=== PATIENT | female | born 1970 | race Asian ===

== ENCOUNTER 2020-03-01 19:10 | Inpatient (IN) | payer MEDICAID ==
[~2020-03-01] VITALS: Ht 160 cm; Wt 47.2 kg
[2020-03-01] MEDS ORDERED: SODIUM CHLORIDE 0.9% 1,000 ML IVB ONE (20:09)
[2020-03-01] MEDS ORDERED: PROMETHAZINE HCL 25 MG/ML 1ML IV PRN (20:15)
[2020-03-01 20:31] LABS: Basophils # (auto) 0 10 ^3/uL (0-0.2); Basophils % (auto) 0.2 % (0.0-2.0); Eosinophils # (auto) 0.2 10 ^3/uL (0-0.8); Eosinophils % (auto) 3.8 % (0.0-7.0); Hematocrit 44.5 % (36.0-46.0); Hemoglobin 14.6 g/dL (12.2-16.2); Lymphocytes # (auto) 1.2 10 ^3/uL (0.4-5.4); Mean Corpuscular Hemoglobin 30.3 pg (28.0-32.0); Mean Corpuscular Hgb Conc. 32.9 g/dL (32.0-36.0); Mean Corpuscular Volume 92.1 fL (80.0-100.0); Monocytes # (auto) 0.4 10 ^3/uL (0-1.3); Monocytes % (auto) 6.8 % (0.0-12.0); Neutrophils # (auto) 3.7 10 ^3/uL (1.6-8.6); Neutrophils % (auto) 67.2 % (37.0-80.0); Nucleated Red Blood Cells % 0.1 %; Platelet Count (auto) 201 10^3/uL (140-450); Red Blood Cells 4.83 10^6/uL (4.0-5.20); Red Cell Distribution Width 12.6 % (11.8-14.3); White Blood Cell 5.5 10^3/uL (4.4-10.8)
[2020-03-01 20:38] LABS: Urine Amorphous Crystal FEW /hpf (None Seen); Urine Bacteria NONE SEEN /hpf (None Seen); Urine Blood TRACE /uL (Negative); Urine Specific Gravity 1.013 (1.001-1.035); Urine WBC 2 /hpf (0 - 5)
[2020-03-01 20:51] LABS: Albumin 4.2 g/dL (3.4-5.0); Amylase 61 U/L (25-115); Anion Gap 5 (5-15); Blood Urea Nitrogen 14 mg/dL (7-18); Calcium 9.2 mg/dL (8.5-10.1); Carbon Dioxide 31 mmol/L (21-32); Chloride 102 mmol/L (98-107); Glucose 119 mg/dL (74-106); Lipase 169 U/L (73-393); Magnesium 2.6 mg/dL (1.6-2.6); Potassium 3.5 mmol/L (3.5-5.1); Sodium 138 mmol/L (136-145)
[2020-03-01 20:57] LABS: Alanine Aminotransferase 79 U/L (13-56); Alkaline Phosphatase 74 U/L (45-117); Aspartate Aminotransferase 54 U/L (15-37); BUN/Creatinine Ratio 16.9; Bilirubin, Total 0.4 mg/dL (0.2-1.0); GFR African American 94 mL/min; GFR Non-African American 77 mL/min; Total Protein 8.1 g/dL (6.4-8.2)
[2020-03-01] MEDS ORDERED: ONDANSETRON HCL 4 MG/2 ML VIAL IV PRN (21:45)
[2020-03-01] MEDS ORDERED: MORPHINE SULFATE 4 MG/ML SYR/VIAL IV PRN (21:45)
[2020-03-01] MEDS: SODIUM CHLORIDE 0.9% 1,000 ML IV SCH (23:15)
--- NOTE | 2020-03-01 23:30 | NUR ---
MS admit from ER MONICA SMITH admitted to tele/MS after SBAR received. Patient oriented to Uche killian RN, unit, room 272, bed B, and unit policies regarding patient care and visiting hours. Patient weighed by bedscale and encouraged to call if they need something. All questions and concerns addressed, patient verbalized understanding.
--- NOTE | 2020-03-02 01:01 | NUR ---
Nasogastric tube insertion Patient educated on need for NG tube. All questions addressed. NGT inserted per MD order. Placement verified by aspiration of stomach contents and auscultation. Patient tolerated well.
[2020-03-02 01:27] VITALS: BP 129/71
[2020-03-02 05:00] VITALS: BP 105/65
--- NOTE | 2020-03-02 06:08 | NUR ---
PATIENT HAS NOT HAD BOUTS OF NAUSEA OR VOMITING SINCE PLACING NG TUBE. PATIENT HAD APPROXIMATELY 100 ML OF CLEAR TO YELLOW OUTPUT FROM SUCTION CANISTER. PATIENT ALSO HAS NO C/O OF PAIN AT THIS TIME. WILL CONTINUE TO MONITOR.
[2020-03-02 06:38] LABS: Basophils # (auto) 0 10 ^3/uL (0-0.2); Basophils % (auto) 0.5 % (0.0-2.0); Eosinophils # (auto) 0.1 10 ^3/uL (0-0.8); Eosinophils % (auto) 2.9 % (0.0-7.0); Hematocrit 40.2 % (36.0-46.0); Hemoglobin 13.3 g/dL (12.2-16.2); Lymphocytes # (auto) 0.7 10 ^3/uL (0.4-5.4); Lymphocytes % (auto) 20.5 % (10.0-50.0); Mean Corpuscular Hemoglobin 30.6 pg (28.0-32.0); Mean Corpuscular Hgb Conc. 33.1 g/dL (32.0-36.0); Mean Corpuscular Volume 92.4 fL (80.0-100.0); Monocytes # (auto) 0.4 10 ^3/uL (0-1.3); Neutrophils # (auto) 2.2 10 ^3/uL (1.6-8.6); Neutrophils % (auto) 65.1 % (37.0-80.0); Nucleated Red Blood Cells % 0.2 %; Platelet Count (auto) 177 10^3/uL (140-450); Red Blood Cells 4.35 10^6/uL (4.0-5.20); Red Cell Distribution Width 12.5 % (11.8-14.3); White Blood Cell 3.4 10^3/uL (4.4-10.8)
[2020-03-02 06:53] LABS: BUN/Creatinine Ratio 14.5; Calcium 8.2 mg/dL (8.5-10.1); Potassium 3.7 mmol/L (3.5-5.1)
[2020-03-02 09:00] VITALS: BP 101/56
[2020-03-02] MEDS: PANTOPRAZOLE 40 MG/10 ML VIAL INJ IV SCH (10:24)
[2020-03-02] MEDS: SODIUM CHLORIDE 0.9% 1,000 ML IV SCH ×2 (10:24→22:55)
[2020-03-02] MEDS ORDERED: GASTROGRAFIN 120 ML SOL ONE (10:55)
--- NOTE | 2020-03-02 11:07 | NUR ---
PT TAKEN TO RADIOLOGY FOR SMALL BOWEL FOLLOW THROUGH. TRANSPORTED VIA WHEELCHAIR. NO S/S OF DISTRESS AT MOMENT.
--- NOTE | 2020-03-02 12:40 | NUR ---
PT BACK FROM RADIOLOGY DEPT. NO S/S OF DISTRESS. PT AWARE OF NPO STATUS. CALL LIGHT WITHIN REACH. WILL CONTINUE TO MONITOR.
--- NOTE | 2020-03-02 15:20 | NUR ---
NGT DC, TUBE INTACT, PT TOLERATED PROCEDURE WELL.
--- NOTE | 2020-03-02 19:50 | NUR ---
1900. REPORT OBTAINED ON PATIENT. 1924. PATIENT SEEN. UP AND ABULATING IN HER ROOM. DENIED PAIN OR DISCOMFORT. IV FLUID INFUSING. MONITORING AND CARE CONTINUES.
[2020-03-02 22:00] VITALS: BP 94/58
[2020-03-03 05:00] VITALS: BP 98/52
[2020-03-03] MEDS: PANTOPRAZOLE 40 MG/10 ML VIAL INJ IV SCH (08:53)
[2020-03-03 09:10] VITALS: BP 102/65
[2020-03-03] MEDS: SODIUM CHLORIDE 0.9% 1,000 ML IV SCH (11:07)
[2020-03-03 13:00] VITALS: BP 113/61
[2020-03-03 14:26] VITALS: BP 113/61
--- NOTE | 2020-03-03 15:15 | NUR ---
DISCHARGE INSTRUCTIONS PROVIDED TO PT. PT VERBALIZED UNDERSTANDING FOR FOLLOW UP APPOINTMENT WITH PCP. EDUCATIONAL MATERIAL PROVIDED, ALL QUESTIONS AND CONCERNS ADDRESSED. IV CATHETER DC'D, CATHETER INTACT#20, NO PHLEBITIS. PT SAFELY ESCORTED OUT OF UNIT.
== END 2020-03-03 15:30 | disposition home or self-care (01) | DRG 247 ==
LOC: ER 19:10 → WEST WING 19:11
PROVIDERS: ADMIT Nurse Practitioner; ATTEND Internal Medicine
DX: K56.609 Unspecified intestinal obstruction, unspecified as to partial versus complete obstruction (principal); I95.9 Hypotension, unspecified; Z82.49 Family history of ischemic heart disease and other diseases of the circulatory system; I10 Essential (primary) hypertension
CPT/HCPCS: 36415; 71045; 74176; 74250; 76705; 80048; 80053; 81001; 82150; 83690; 83735; 84484; 85025; 93005; C9113; G0378